=== PATIENT | male | born 1945 | race Caucasian/White ===

== ENCOUNTER 2017-09-07 13:41 | Inpatient (IN) | payer MEDICARE, OTHER ==
[2017-09-07 14:02] VITALS: BMI 21.9
[2017-09-07] MEDS ORDERED: Sodium Chloride 0.9% 1,000 ML IV STA (14:33)
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
[2017-09-07 14:54] LABS: BASO % 0.2 % (0.0-2.0); EOS % 0.2 % (0.0-4.0); HEMOGLOBIN 15.3 g/dL (12.0-18.0); LYMPH # 1.2 K/uL (1.0-4.3); LYMPH % 7.5 % (20.0-40.0); MEAN CELL VOLUME 79.8 fL (80.0-94.0); MEAN CORPUSCULAR HEMOGLOBIN 26.2 pg (27.0-31.0); MEAN CORPUSCULAR HGB CONC 32.8 g/dL (33.0-37.0); MEAN PLATELET VOLUME 7.8 fL (7.2-11.7); MONO # 1.3 K/uL (0.0-0.8); MONO % 8.6 % (0.0-10.0); NEUT # 13.1 K/uL (1.8-7.0); NEUT % 83.5 % (50.0-75.0); PLATELET COUNT 471 K/uL (130-400); RBC 5.85 Mil/uL (4.40-5.90); WHITE BLOOD COUNT 15.7 K/uL (4.8-10.8)
[2017-09-07 15:10] LABS: ALBUMIN 4.6 g/dL (3.5-5.0); CALCIUM 9.1 mg/dl (8.6-10.4)
[2017-09-07 15:17] LABS: ALB/GLOB RATIO 1.2 (1.0-2.1); ANISOCYTOSIS SLIGHT; EOSINOPHIL 1 % (0-4); LYMPHOCYTE 6 % (20-40); MONOCYTE 12 % (0-10); NEUTROPHIL 81 % (50-75); PLATELET ESTIMATE SLIGHTLY INCREASED (NORMAL); TOTAL CELLS COUNTED 100
--- NOTE | 2017-09-07 16:02 | RAD ---
HISTORY: diarrhea COMPARISON: No prior. FINDINGS: LUNGS: No active pulmonary disease. PLEURA: No significant pleural effusion identified, no pneumothorax apparent. CARDIOVASCULAR: Normal. OSSEOUS STRUCTURES: Thoraco lumbar rightward convexity. Thoraco lumbar spondylosis VISUALIZED UPPER ABDOMEN: A few air-fluid levels in in the left upper quadrant are present. These are nonspecific. No free subdiaphragmatic air noted OTHER FINDINGS: None. IMPRESSION: No acute cardiopulmonary pathology
[2017-09-07] MEDS ORDERED: Ciprofloxacin 400mg/200ml D5W 400 MG/200 ML BAG IVPB STA (16:21)
[2017-09-07] MEDS ORDERED: metroNIDAZOLE IV 500 mg/100 ml 500 MG/100 ML BAG IVPB STA (16:21)
[2017-09-07] MEDS ORDERED: metroNIDAZOLE IV 500 mg/100 ml 500 MG/100 ML BAG ONE (16:53)
[2017-09-07] MEDS ORDERED: Ciprofloxacin 400mg/200ml D5W 400 MG/200 ML BAG IVPB ONE (17:28)
[2017-09-07] MEDS ORDERED: Ciprofloxacin 400mg/200ml D5W 400 MG/200 ML BAG IVPB SCH (20:30)
[2017-09-07] MEDS: Sodium Chloride 0.9% 1,000 ML IV SCH (20:40)
[2017-09-07 22:52] VITALS: RESP 20
[2017-09-08] MEDS: metroNIDAZOLE IV 500 mg/100 ml 500 MG/100 ML BAG IVPB SCH ×3 (00:43→17:20)
[2017-09-08] MEDS: Ciprofloxacin 400mg/200ml D5W 400 MG/200 ML BAG IVPB SCH ×2 (05:54→17:58)
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
[2017-09-08 08:38] LABS: HEMOGLOBIN 13.4 g/dL (12.0-18.0); MEAN CELL VOLUME 80.4 fL (80.0-94.0); MEAN CORPUSCULAR HEMOGLOBIN 26.6 pg (27.0-31.0); MEAN CORPUSCULAR HGB CONC 33.1 g/dL (33.0-37.0); MEAN PLATELET VOLUME 7.7 fL (7.2-11.7); RBC 5.02 Mil/uL (4.40-5.90); RED CELL DISTRIBUTION WIDTH 16.9 % (11.5-14.5); WHITE BLOOD COUNT 10.3 K/uL (4.8-10.8)
[2017-09-08 08:55] LABS: IRON 11 ug/dL (49-181)
[2017-09-08 09:05] LABS: TOTAL IRON BINDING CAPACITY 387 ug/dL (250-450)
[2017-09-08 09:08] LABS: % IRON SATURATION 3 (20-55); ALB/GLOB RATIO 1.2 (1.0-2.1); ALBUMIN 3.8 g/dL (3.5-5.0); ALT/SGPT 33 U/L (21-72); AST/SGOT 24 U/L (17-59); BLOOD UREA NITROGEN 20 mg/dL (9-20); CALCIUM 8.3 mg/dl (8.6-10.4); GFR AFRICAN-AMERICAN > 60; GFR NON-AFRICAN AMERICAN 50; HDL CHOLESTEROL 27 mg/dL (30-70)
[2017-09-08 09:10] LABS: LDL CHOLESTEROL 60 mg/dL (0-129)
[2017-09-08] MEDS ORDERED: Potassium Chloride 20 mEq ER Tab PO SCH (10:00)
[2017-09-08 12:05] LABS: INR 1.1
[2017-09-08 12:43] LABS: HEPATITIS B SURFACE AG NEGATIVE (NEGATIVE)
[2017-09-08 12:49] LABS: HEPATITIS A IGM NEGATIVE (NEGATIVE); HEPATITIS B CORE AB Negative (NEGATIVE)
[2017-09-08 12:50] LABS: FERRITIN 9.3 ng/mL
[2017-09-08 13:01] LABS: HEPATITIS C ANTIBODY Negative (NEGATIVE)
[2017-09-08 14:50] LABS: FOLATE 19.5 ng/mL
[2017-09-08] MEDS: Sodium Chloride 0.9% 1,000 ML IV SCH (18:01)
[2017-09-08 18:09] LABS: SQUAMOUS EPITHIAL 1 /hpf (0-5); URINE BACTERIA MOD (<OCC); URINE BILIRUBIN NEGATIVE (NEGATIVE); URINE CLARITY Clear (Clear); URINE COLOR Yellow (YELLOW); URINE GLUCOSE (UA) NORMAL (Normal); URINE LEUKOCYTE ESTERASE 1+ Leu/uL (Negative); URINE NITRATE NEGATIVE (NEGATIVE); URINE PROTEIN 2+ mg/dL (NEGATIVE); URINE UROBILINOGEN NORMAL mg/dL (0.2-1.0)
[2017-09-08 18:12] LABS: URINE BLOOD 3+ (NEGATIVE)
[2017-09-08 20:41] LABS: C DIFF TOXIN A B NEGATIVE (NEGATIVE)
[2017-09-08 21:28] LABS: FECAL LEUKOCYTES NEGATIVE (NEGATIVE)
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
[2017-09-09] MEDS: metroNIDAZOLE IV 500 mg/100 ml 500 MG/100 ML BAG IVPB SCH ×3 (01:15→17:34)
[2017-09-09] MEDS: Sodium Chloride 0.9% 1,000 ML IV SCH ×4 (02:30→21:18)
[2017-09-09] MEDS: Ciprofloxacin 400mg/200ml D5W 400 MG/200 ML BAG IVPB SCH ×2 (05:52→18:40)
[2017-09-09 08:25] LABS: BASO % 0.4 % (0.0-2.0); EOS # 0.1 K/uL (0.0-0.7); EOS % 1.2 % (0.0-4.0); HEMOGLOBIN 12.6 g/dL (12.0-18.0); LYMPH # 1.4 K/uL (1.0-4.3); LYMPH % 18.9 % (20.0-40.0); MEAN CELL VOLUME 80.4 fL (80.0-94.0); MEAN CORPUSCULAR HEMOGLOBIN 26.6 pg (27.0-31.0); MEAN PLATELET VOLUME 7.5 fL (7.2-11.7); MONO % 13.9 % (0.0-10.0); NEUT # 4.7 K/uL (1.8-7.0); NEUT % 65.6 % (50.0-75.0); NRBC % 0.1 % (0.0-2.0); RBC 4.73 Mil/uL (4.40-5.90); RED CELL DISTRIBUTION WIDTH 16.7 % (11.5-14.5); WHITE BLOOD COUNT 7.2 K/uL (4.8-10.8)
[2017-09-09 08:29] LABS: BLOOD UREA NITROGEN 19 mg/dL (9-20); CALCIUM 7.9 mg/dl (8.6-10.4); GFR AFRICAN-AMERICAN > 60; GFR NON-AFRICAN AMERICAN > 60
--- NOTE | 2017-09-09 09:42 | CP.PCM.PN ---
<Yessica Toro - Last Filed: 09/09/17 09:38> Subjective - Date & Time of Evaluation Date of Evaluation: 09/09/17 Time of Evaluation: 09:38 - Subjective Subjective: Gastroenterology Fellow/PGY5 Progress Note Patient states he feels a little better. Notes less diarrhea and improving stool caliber. Tolerating regular diet. A 12-point review of systems negative except for as above. Objective - Vital Signs/Intake and Output Vital Signs (last 24 hours): Temp Pulse Resp BP Pulse Ox 97.7 F 65 20 99/60 L 99 09/09/17 08:43 09/09/17 08:43 09/09/17 08:43 09/09/17 08:43 09/09/17 08:43 Intake and Output: 09/09/17 09/09/17 06:59 18:59 Intake Total 1040 Balance 1040 - Medications Medications: Current Medications Acetaminophen (Tylenol 325mg Tab) 650 mg PO Q4H PRN PRN Reason: pain fever Famotidine (Pepcid) 20 mg PO DAILY [facility] Last Admin: 09/08/17 09:56 Dose: 20 mg Heparin Sodium (Porcine) (Heparin) 5,000 units SC Q12 [facility] Last Admin: 09/08/17 21:35 Dose: 5,000 units Metronidazole (Flagyl) 500 mg in 100 mls @ 100 mls/hr IVPB Q8H [facility] Last Admin: 09/09/17 01:15 Dose: 100 mls/hr Sodium Chloride (Sodium Chloride 0.9%) 1,000 mls @ 100 mls/hr IV .Q10H [facility] Last Admin: 09/09/17 05:52 Dose: 100 mls/hr Ciprofloxacin (Cipro 400mg/200ml Dsw) 400 mg in 200 mls @ 133 mls/hr IVPB Q12H [facility] Last Admin: 09/09/17 05:52 Dose: 133 mls/hr Ondansetron HCl (Zofran Inj) 4 mg IVP Q6 PRN PRN Reason: Nausea/Vomiting Pneumococcal Polyvalent Vaccine (Pneumovax 23 Vaccine) 0.5 ml IM .ONCE ONE Stop: 09/10/17 10:01 - Labs Labs: 09/09/17 08:06 09/09/17 08:06 PT 13.0 SECONDS (9.7-12.2) H 09/08/17 11:46 INR 1.1 09/08/17 11:46 - Constitutional Appears: Non-toxic, No Acute Distress - Head Exam Head Exam: ATRAUMATIC, NORMOCEPHALIC - Eye Exam Eye Exam: EOMI, PERRL. absent: Scleral icterus Pupil Exam: PERRL. absent: Miosis, Mydriatic - ENT Exam ENT Exam: Mucous Membranes Moist, Normal Oropharynx - Neck Exam Neck Exam: Full ROM, Normal Inspection - Respiratory Exam Respiratory Exam: Clear to Ausculation Bilateral. absent: Rales, Rhonchi, Wheezes - Cardiovascular Exam Cardiovascular Exam: RRR, +S1, +S2. absent: Gallop, Rubs - GI/Abdominal Exam GI & Abdominal Exam: Soft, Normal Bowel Sounds. absent: Distended, Firm, Guarding, Rigid, Tenderness, Organomegaly, Rebound - Extremities Exam Extremities Exam: Normal Inspection. absent: Pedal Edema - Neurological Exam Neurological Exam: Alert, Awake - Psychiatric Exam Psychiatric exam: Normal Affect, Normal Mood - Skin Skin Exam: Dry, Intact, Normal Color, Warm Assessment and Plan - Assessment and Plan (Free Text) Assessment: 72 year old male with no prior medical history presenting with diarrhea. Active treatment of acute renal insufficiency 2/2 dehydration from acute diarrhea. No prior EGD or colonoscopy. Plan: >C diff negative >stool culture pending >likely viral etiology >renal function improved >on cipro/flagyl- complete 10-14 day course >tolerating diet >pending urine culture >outpatient GI follow up for colonoscopy in 6-8 weeks >okay to discharge from GI standpoint <Dinh Naqvi - Last Filed: 09/09/17 14:28> Objective - Vital Signs/Intake and Output Vital Signs (last 24 hours): Temp Pulse Resp BP Pulse Ox 97.7 F 65 20 99/60 L 99 09/09/17 08:43 09/09/17 08:43 09/09/17 08:43 09/09/17 08:43 09/09/17 08:43 Intake and Output: 09/09/17 09/09/17 06:59 18:59 Intake Total 1040 Balance 1040 - Medications Medications: Current Medications Acetaminophen (Tylenol 325mg Tab) 650 mg PO Q4H PRN PRN Reason: pain fever Famotidine (Pepcid) 20 mg PO DAILY [facility] Last Admin: 09/09/17 09:49 Dose: 20 mg Heparin Sodium (Porcine) (Heparin) 5,000 units SC Q12 [facility] Last Admin: 09/09/17 09:49 Dose: 5,000 units Metronidazole (Flagyl) 500 mg in 100 mls @ 100 mls/hr IVPB Q8H [facility] Last Admin: 09/09/17 09:49 Dose: 100 mls/hr Sodium Chloride (Sodium Chloride 0.9%) 1,000 mls @ 100 mls/hr IV .Q10H [facility] Last Admin: 09/09/17 05:52 Dose: 100 mls/hr Ciprofloxacin (Cipro 400mg/200ml Dsw) 400 mg in 200 mls @ 133 mls/hr IVPB Q12H [facility] Last Admin: 09/09/17 05:52 Dose: 133 mls/hr Ondansetron HCl (Zofran Inj) 4 mg IVP Q6 PRN PRN Reason: Nausea/Vomiting Pneumococcal Polyvalent Vaccine (Pneumovax 23 Vaccine) 0.5 ml IM .ONCE ONE Stop: 09/10/17 10:01 - Labs Labs: 09/09/17 08:06 09/09/17 08:06 PT 13.0 SECONDS (9.7-12.2) H 09/08/17 11:46 INR 1.1 09/08/17 11:46 Attending/Attestation - Attestation I have personally seen and examined this patient.: Yes I have fully participated in the care of the patient.: Yes I have reviewed all pertinent clinical information, including history, physical exam and plan: Yes Notes (Text): 09/09/17 14:27 72 year old male who presents with acute diarrhea and dehydration. 1. Acute diarrhea 2. Acute renal insufficiency Plan: -improving -diet as tolerated now -ok for discharge -would give a short course of antibiotics -recommend outpatient colonoscopy in 6 weeks
[2017-09-09] MEDS ORDERED: Potassium Chloride 20 mEq ER Tab PO ONE (16:00)
[2017-09-10] MEDS: metroNIDAZOLE IV 500 mg/100 ml 500 MG/100 ML BAG IVPB SCH ×3 (00:12→17:00)
[2017-09-10] MEDS: Ciprofloxacin 400mg/200ml D5W 400 MG/200 ML BAG IVPB SCH ×2 (05:10→18:30)
--- NOTE | 2017-09-10 07:53 | CP.PCM.PN ---
<Yessica Toro - Last Filed: 09/10/17 09:28> Subjective - Date & Time of Evaluation Date of Evaluation: 09/10/17 Time of Evaluation: 07:50 - Subjective Subjective: Gastroenterology Fellow/PGY5 Progress Note Patient states he feels well. Notes one episode of diarrhea yesterday. Tolerating regular diet. A 12-point review of systems negative except for as above. Objective - Vital Signs/Intake and Output Vital Signs (last 24 hours): Temp Pulse Resp BP Pulse Ox 98 F 65 20 114/60 99 09/10/17 00:11 09/10/17 00:11 09/10/17 00:11 09/10/17 00:11 09/10/17 00:11 Intake and Output: 09/10/17 09/10/17 06:59 18:59 Intake Total 1160 Balance 1160 - Medications Medications: Current Medications Acetaminophen (Tylenol 325mg Tab) 650 mg PO Q4H PRN PRN Reason: pain fever Famotidine (Pepcid) 20 mg PO DAILY [facility] Last Admin: 09/09/17 09:49 Dose: 20 mg Heparin Sodium (Porcine) (Heparin) 5,000 units SC Q12 [facility] Last Admin: 09/09/17 21:17 Dose: 5,000 units Metronidazole (Flagyl) 500 mg in 100 mls @ 100 mls/hr IVPB Q8H [facility] Last Admin: 09/10/17 00:12 Dose: 100 mls/hr Sodium Chloride (Sodium Chloride 0.9%) 1,000 mls @ 100 mls/hr IV .Q10H [facility] Last Admin: 09/09/17 21:18 Dose: 100 mls/hr Ciprofloxacin (Cipro 400mg/200ml Dsw) 400 mg in 200 mls @ 133 mls/hr IVPB Q12H [facility] Last Admin: 09/10/17 05:10 Dose: 133 mls/hr Ondansetron HCl (Zofran Inj) 4 mg IVP Q6 PRN PRN Reason: Nausea/Vomiting Pneumococcal Polyvalent Vaccine (Pneumovax 23 Vaccine) 0.5 ml IM .ONCE ONE Stop: 09/10/17 10:01 - Labs Labs: 09/09/17 08:06 09/09/17 08:06 PT 13.0 SECONDS (9.7-12.2) H 09/08/17 11:46 INR 1.1 09/08/17 11:46 - Constitutional Appears: Non-toxic, No Acute Distress - Head Exam Head Exam: ATRAUMATIC, NORMOCEPHALIC - Eye Exam Eye Exam: EOMI, PERRL. absent: Scleral icterus Pupil Exam: PERRL - ENT Exam ENT Exam: Mucous Membranes Moist, Normal Oropharynx - Neck Exam Neck Exam: Full ROM, Normal Inspection - Respiratory Exam Respiratory Exam: Clear to Ausculation Bilateral. absent: Rales, Rhonchi, Wheezes - Cardiovascular Exam Cardiovascular Exam: RRR, +S1, +S2. absent: Gallop, Rubs - GI/Abdominal Exam GI & Abdominal Exam: Soft, Normal Bowel Sounds. absent: Distended, Firm, Guarding, Rigid, Tenderness, Organomegaly, Rebound - Extremities Exam Extremities Exam: Full ROM, Normal Inspection. absent: Pedal Edema - Neurological Exam Neurological Exam: Alert, Awake - Psychiatric Exam Psychiatric exam: Normal Affect, Normal Mood - Skin Skin Exam: Dry, Intact, Normal Color, Warm Assessment and Plan - Assessment and Plan (Free Text) Assessment: 72 year old male with no prior medical history presenting with diarrhea. Active treatment of acute renal insufficiency 2/2 dehydration from acute diarrhea. No prior EGD or colonoscopy. Plan: >stool workup negative to date >blood and urine cultures negative to date >likely viral etiology >renal function improved >complete 10 day antibiotic course >tolerating diet >outpatient GI follow up for colonoscopy in 6-8 weeks >okay to discharge from GI standpoint <Dinh Naqvi - Last Filed: 09/10/17 16:43> Objective - Vital Signs/Intake and Output Vital Signs (last 24 hours): Temp Pulse Resp BP Pulse Ox 97.5 F L 68 20 116/73 98 09/10/17 16:00 09/10/17 16:00 09/10/17 16:00 09/10/17 16:00 09/10/17 16:00 Intake and Output: 09/10/17 09/10/17 06:59 18:59 Intake Total 1160 1200 Output Total 0 Balance 1160 1200 - Medications Medications: Current Medications Acetaminophen (Tylenol 325mg Tab) 650 mg PO Q4H PRN PRN Reason: pain fever Famotidine (Pepcid) 20 mg PO DAILY [facility] Last Admin: 09/10/17 09:31 Dose: 20 mg Heparin Sodium (Porcine) (Heparin) 5,000 units SC Q12 [facility] Last Admin: 09/10/17 09:31 Dose: 5,000 units Metronidazole (Flagyl) 500 mg in 100 mls @ 100 mls/hr IVPB Q8H [facility] Last Admin: 09/10/17 09:31 Dose: 100 mls/hr Sodium Chloride (Sodium Chloride 0.9%) 1,000 mls @ 100 mls/hr IV .Q10H [facility] Last Admin: 09/10/17 15:49 Dose: Not Given Ciprofloxacin (Cipro 400mg/200ml Dsw) 400 mg in 200 mls @ 133 mls/hr IVPB Q12H [facility] Last Admin: 09/10/17 05:10 Dose: 133 mls/hr Ondansetron HCl (Zofran Inj) 4 mg IVP Q6 PRN PRN Reason: Nausea/Vomiting - Labs Labs: 09/09/17 08:06 09/09/17 08:06 PT 13.0 SECONDS (9.7-12.2) H 09/08/17 11:46 INR 1.1 09/08/17 11:46 Attending/Attestation - Attestation I have personally seen and examined this patient.: Yes I have fully participated in the care of the patient.: Yes I have reviewed all pertinent clinical information, including history, physical exam and plan: Yes Notes (Text): 09/10/17 16:42 72 year old male who presents with acute diarrhea and dehydration. 1. Acute diarrhea 2. Acute renal insufficiency Plan: -improved -diet as tolerated now -ok for discharge -would give a short course of antibiotics -recommend outpatient colonoscopy in 6 weeks -will sign off
[2017-09-10] MEDS ORDERED: Influenza Vaccine 60 mcg/0.5 mL SYR (4YR UP) IM ONE (10:00)
[2017-09-10] MEDS ORDERED: Pneumococcal 23-Valent Vaccine IM ONE (10:00)
[2017-09-10] MEDS: Sodium Chloride 0.9% 1,000 ML IV SCH ×2 (15:49→21:33)
--- NOTE | 2017-09-10 17:43 | PN ---
DATE: 09/09/2017 SUBJECTIVE: The patient is a 72-year-old male. The patient is seen and examined at the bedside on 09/09/2017. The patient looks comfortable. Diarrhea is better. Fatigue is better. Tolerating regular diet. He is under care of GI. No nausea or vomiting. No fever. No chills. No headache. No dizziness. No palpitation. No hematemesis or hematochezia. PHYSICAL EXAMINATION: VITAL SIGNS: Temperature is 97.7, pulse 55, respiratory rate 20, blood pressure 99/60, pulse oxymetry 99%. HEENT: Head normocephalic and atraumatic. Eyes; PERRLA. Extraocular muscles intact. Conjunctivae clear. Nose is patent. Mucous membranes moist. NECK: Supple. No carotid bruits. No JVD or thyromegaly. CHEST: Bilaterally symmetrical. HEART: S1 and S2 positive. LUNGS: Clear to auscultation. ABDOMEN: Soft. Bowel sounds present. No organomegaly. EXTREMITIES: No edema. No cyanosis. NEUROLOGIC: The patient is awake and alert. Moving all 4 extremities. No focal deficits. LABORATORY DATA: White blood cells 7.2, on admission, it was 15.7; hemoglobin 12.6, hematocrit 38.0, and platelets 337. Sodium 137, potassium 3.3, BUN 19, creatinine 1.1. ASSESSMENT AND PLAN: Mr. Samson Brumfield is a 72-year-old male came with leukocytosis, now is improved; hypokalemia, we will replete that; hyperchloremia; hypocalcemia; iron deficiency; abnormal liver function test; proteinuria; hematuria; urinary tract infection. Hepatitis profile is negative. Stool wbc qualitative is negative. Seen by GI, Dr. Donya Tao, came with diarrhea, dehydration from acute diarrhea. No prior EGD or colonoscopy. Clostridium difficile negative. May be viral etiology. Renal function is improving on Cipro and Flagyl. Plan is to complete 10 to 14 days of course. Outpatient GI followup of a colonoscopy in 6 to 8 weeks as per GI. I appreciate Dr. Donya Tao's input. We will repeat labs tomorrow and we will plan according to that. We will follow. Kelli Palomo MD [facility] # [id number] JOSÉ
[2017-09-11] MEDS: metroNIDAZOLE IV 500 mg/100 ml 500 MG/100 ML BAG IVPB SCH ×2 (00:06→09:55)
--- NOTE | 2017-09-11 02:50 | PN ---
DATE: SUBJECTIVE: The patient is a 72-year-old male. The patient seen and examined on the bedside. Looking comfortable. Sister was sitting on the bedside also. The patient had one episode of diarrhea. No nausea or vomiting. No constipation. No abdominal pain. No headache. No dizziness. No chest pain. No fever. No chills. No hematuria. No hematochezia. PHYSICAL EXAMINATION: VITAL SIGNS: Temperature 98, pulse 55, respiratory rate 20, blood pressure 114/60, pulse oximetry of 99. HEENT: Head normocephalic, atraumatic. Eyes: PERRLA. Extraocular muscles are intact. Conjunctivae clear. Nose patent. Mucous membranes are moist. NECK: Supple. No carotid bruit. No JVD or thyromegaly. CHEST: Bilaterally symmetrical. HEART: S1 and S2 positive. LUNGS: Clear to auscultation. ABDOMEN: Soft. Bowel sounds are positive. No organomegaly. EXTREMITIES: No edema. No cyanosis. NEUROLOGIC: The patient is awake and alert. Moving all four extremities with no focal deficit. MEDICATIONS: Tylenol, Pepcid, heparin, Flagyl, NS, Cipro, Zofran, pneumococcal Pneumovax. LABORATORY DATA: White blood cells 7.2, hemoglobin 12.6, hematocrit 38.0, platelets 337. Sodium 137, potassium 3.3, BUN 19, creatinine 1.1, glucose 82. ASSESSMENT AND PLAN: Mr. Samson Brumfield is a 72-year-old male with hypokalemia, hyperchloremia, came with acute diarrhea and dehydration, ruled out traveler's diarrhea, acute kidny injury, improved. Diet, he is tolerating. The patient in a short course of antibiotics. Recommending outpatient colonoscopy in six weeks by GI who just signed off the case. The patient is getting ciprofloxacin, metronidazole, heparin for deep venous thrombosis prophylaxis, Pepcid for gastrointestinal prophylaxis. Continue present treatment. Repeat labs. We will follow up. Kelli Palomo MD [facility]PITAL[facility]la
[2017-09-11] MEDS: Ciprofloxacin 400mg/200ml D5W 400 MG/200 ML BAG IVPB SCH (05:15)
[2017-09-11 06:27] LABS: HEMOGLOBIN 11.3 g/dL (12.0-18.0); MEAN CELL VOLUME 79.4 fL (80.0-94.0); MEAN CORPUSCULAR HEMOGLOBIN 26.7 pg (27.0-31.0); MEAN CORPUSCULAR HGB CONC 33.7 g/dL (33.0-37.0); MEAN PLATELET VOLUME 7.8 fL (7.2-11.7); RBC 4.24 Mil/uL (4.40-5.90); WHITE BLOOD COUNT 8.5 K/uL (4.8-10.8)
[2017-09-11 06:35] LABS: BLOOD UREA NITROGEN 9 mg/dL (9-20); CALCIUM 7.6 mg/dl (8.6-10.4); GFR AFRICAN-AMERICAN > 60; GFR NON-AFRICAN AMERICAN > 60
[2017-09-11 07:40] VITALS: BP 109/77; PULSE 75; TEMP 98; O2SAT 98
[2017-09-11] MEDS ORDERED: Calcium-Vit D 250 mg-125 Units Tab UD PO SCH (10:00)
[2017-09-11] MEDS: Potassium Chloride 20 mEq ER Tab PO SCH ×2 (13:37→14:39)
--- NOTE | 2017-09-11 17:53 | CP.PCM.PN ---
Subjective - Date & Time of Evaluation Date of Evaluation: 09/11/17 Time of Evaluation: 11:00 - Subjective Subjective: Alert, oriented, no abdominal pain or distress. Objective - Vital Signs/Intake and Output Vital Signs (last 24 hours): Temp Pulse Resp BP Pulse Ox 98 F 75 20 109/77 98 09/11/17 07:38 09/11/17 07:38 09/11/17 07:38 09/11/17 10:48 09/11/17 07:38 Intake and Output: 09/11/17 09/11/17 06:59 18:59 Intake Total 1280 1250 Output Total 0 Balance 1280 1250 - Labs Labs: 09/11/17 06:05 09/11/17 06:05 PT 13.0 SECONDS (9.7-12.2) H 09/08/17 11:46 INR 1.1 09/08/17 11:46 Assessment and Plan - Assessment and Plan (Free Text) Assessment: Patient is seen and examined, alert, oriented, ambulatory. Cleared by GI to be discharged home on oral antibiotics. D/W DR Palomo, plan to discharge home today. Potassium 2.8 today, replaced and gave prescription for 3 days. Advised to follow up in the office in 1 week.
== END 2017-09-11 16:45 | disposition home or self-care (01) | DRG 683 ==
LOC: C.ER 13:41 → C.9E 16:46 → C.3T 18:14
PROVIDERS: ADMIT Internal Medicine; ATTEND Internal Medicine
DX: N17.9 Acute kidney failure, unspecified (principal); N39.0 Urinary tract infection, site not specified; E83.51 Hypocalcemia; D64.9 Anemia, unspecified; E87.6 Hypokalemia; E86.0 Dehydration; Z23 Encounter for immunization; N28.9 Disorder of kidney and ureter, unspecified

== ENCOUNTER 2018-08-29 13:51 | Outpatient (CLI) | payer MEDICARE, OTHER | END 2018-08-29 13:52 | disposition home or self-care (01) | LOC: C.MRIC 13:52 | DX: G30.9 Alzheimer's disease, unspecified (principal) ==